=== PATIENT | male | born 1955 | race Caucasian/White ===

== ENCOUNTER 2022-02-09 12:10 | Inpatient (IN) ==
[2022-02-09 13:25] LABS: ABS Basophils 0.1 10^3/ul (0-0.2); ABS Eosinophils 0.1 10^3/ul (0-0.6); ABS Lymphocytes 0.6 10^3/ul (1.0-4.8); ABS Monocytes 0.7 10^3/ul (0-0.8); ABS Neutrophils 4.2 10^3/ul (1.5-7.7); Eosinophil % 1.5 %; Hematocrit 38 % (42-52); Lymphocyte % 11.4 %; Mean Corpuscular HGB Conc 32 g/dL (31-36); Mean Corpuscular Hemoglobin 29 pg (27-31); Mean Corpuscular Volume 90 fL (80-94); Mean Platelet Volume 10.1 fL (7.4-10.4); Nucleated Red Blood Cells % 0.1; Platelet Count 252 10^3/uL (150-450); Red Blood Count 4.17 10^6 /uL (4.18-5.48); Red Cell Distribution Width 16 % (10-15); White Blood Count 5.7 10^3/uL (3.5-10.8)
[2022-02-09 13:38] LABS: INR 1.17 (0.89-1.11)
[2022-02-09 13:47] LABS: High Sens Troponin Baseline 14 pg/mL (<20)
[2022-02-09 14:29] LABS: ALT 9 U/L (7-52); Albumin 3.6 g/dL (3.2-5.2); Albumin/Globulin Ratio 1.1 (1-3); Alkaline Phosphatase 98 U/L (35-149); Blood Urea Nitrogen 41 mg/dL (6-24); CO2 Carbon Dioxide 21 mmol/L (22-32); Calcium 8.5 mg/dL (8.6-10.3); Chloride 110 mmol/L (101-111); Globulin 3.4 g/dL (2-4); Glucose 107 mg/dL (70-100); Sodium 139 mmol/L (135-145); eGFR CKD-EPI 34.6 (>60)
[2022-02-09 14:32] LABS: Anion Gap 8 mmol/L (2-11)
[2022-02-09] MEDS ORDERED: Iodixanol (CONTRAST) 320 MG/ML 100 ML SDV IV ONE (15:22)
[2022-02-09 16:29] LABS: High Sensitivity Troponin 1 Hr 17 pg/mL (<20)
[2022-02-09] MEDS ORDERED: Furosemide 40 mg/4 ml IV VIAL IV ONE (16:42)
[2022-02-09] MEDS ORDERED: Enoxaparin 80 MG/0.8 ML SYR SUBCUT ONE (16:42)
[2022-02-09 17:08] LABS: Potassium Redraw 5.1 mmol/L (3.5-5.0)
[2022-02-09 17:11] LABS: C Reactive Protein 11.36 mg/L (<8.01)
[2022-02-09 17:25] LABS: TSH Ultra Thyroid Stim Horm 3.76 mcIU/mL (0.34-5.60)
[2022-02-09 18:06] LABS: Magnesium 1.7 mg/dL (1.9-2.7)
[2022-02-09] MEDS ORDERED: Metoprolol Tartrate 5 mg VIAL 5 ml VIAL (1 mg/ml) IV PRN (18:13)
[2022-02-09] MEDS ORDERED: Dextrose 50% Syringe 50 ml 25 GM/50 ML SYRINGE IV PUSH PRN (18:17)
[2022-02-09 19:41] LABS: PCO2 Arterial 33 mmHg (35-45); PO2 Arterial 91 mmHg (80-100)
[2022-02-09] MEDS: CMCS: SitaGLIPtin 100 mg TAB (NF) PO SCH ×2 (19:57→21:08)
[2022-02-10 08:22] LABS: ABS Lymphocytes 0.9 10^3/ul (1.0-4.8); ABS Neutrophils 3.4 10^3/ul (1.5-7.7); Eosinophil % 0.3 %; Hematocrit 39 % (42-52); Hemoglobin 12.3 g/dL (14.0-18.0); Lymphocyte % 16.6 %; Mean Corpuscular HGB Conc 32 g/dL (31-36); Mean Corpuscular Hemoglobin 29 pg (27-31); Mean Corpuscular Volume 91 fL (80-94); Mean Platelet Volume 10.1 fL (7.4-10.4); Nucleated Red Blood Cells % 0.1; Platelet Count 169 10^3/uL (150-450); Red Blood Count 4.22 10^6 /uL (4.18-5.48); Red Cell Distribution Width 17 % (10-15); White Blood Count 5.3 10^3/uL (3.5-10.8)
[2022-02-10 09:06] LABS: ALT 9 U/L (7-52); Albumin 3.4 g/dL (3.2-5.2); Albumin/Globulin Ratio 1.2 (1-3); Alkaline Phosphatase 89 U/L (35-149); Blood Urea Nitrogen 38 mg/dL (6-24); CO2 Carbon Dioxide 23 mmol/L (22-32); Calcium 8.6 mg/dL (8.6-10.3); Chloride 110 mmol/L (101-111); Globulin 2.9 g/dL (2-4); Glucose 86 mg/dL (70-100); Magnesium 1.9 mg/dL (1.9-2.7); Sodium 143 mmol/L (135-145); Total Protein 6.3 g/dL (6.4-8.9); eGFR CKD-EPI 35.7 (>60)
[2022-02-10 09:08] LABS: Anion Gap 10 mmol/L (2-11)
[2022-02-10] MEDS ORDERED: Perflutren Lipid Microsphere 3 ML VIAL ONE (12:09)
[2022-02-10] MEDS ORDERED: Albuterol HFA INHALER 8 gm MDI INH ONE (12:35)
[2022-02-10] MEDS ORDERED: Albuterol HFA INHALER 8 gm MDI INH PRN (12:36)
[2022-02-11 06:25] LABS: ABS Eosinophils 0.1 10^3/ul (0-0.6); ABS Monocytes 0.8 10^3/ul (0-0.8); ABS Neutrophils 3.4 10^3/ul (1.5-7.7); Eosinophil % 2.4 %; Hematocrit 38 % (42-52); Lymphocyte % 18.8 %; Mean Corpuscular HGB Conc 32 g/dL (31-36); Mean Corpuscular Hemoglobin 29 pg (27-31); Mean Corpuscular Volume 91 fL (80-94); Nucleated Red Blood Cells % 0.1; Platelet Count 151 10^3/uL (150-450); Red Blood Count 4.14 10^6 /uL (4.18-5.48); Red Cell Distribution Width 16 % (10-15); White Blood Count 5.4 10^3/uL (3.5-10.8)
[2022-02-11 06:39] LABS: Calcium 8.5 mg/dL (8.6-10.3); Magnesium 1.8 mg/dL (1.9-2.7); eGFR CKD-EPI 29.2 (>60)
[2022-02-11 06:41] LABS: Potassium 5.4 mmol/L (3.5-5.0)
[2022-02-11] MEDS ORDERED: Magnesium Sulfate 2 gm BAG 2 GM/50 ML BAG IVPB ONE (08:06)
[2022-02-11] MEDS ORDERED: Furosemide 40 mg/4 ml IV VIAL IV SCH (09:00)
[2022-02-11] MEDS ORDERED: SODIUM ZIRCONIUM CYCLOSILICATE 5 GM PACKET PO ONE (09:26)
[2022-02-11 16:40] LABS: Calcium 8.1 mg/dL (8.6-10.3); Potassium 4.9 mmol/L (3.5-5.0); eGFR CKD-EPI 25.3 (>60)
[2022-02-11 18:59] LABS: Urine Bacteria 1+ (Absent); Urine Red Blood Cell 1+(3-5/hpf) (Absent); Urine Squamous Epithelial Cell Present (Absent); Urine White Blood Cell 2+(11-20/hpf) (Absent); Urine Yeast Present (Absent)
[2022-02-11 19:04] LABS: Urine Appearance Cloudy; Urine Bilirubin 1+ (Small) (Negative); Urine Blood Trace (Lysed) (Negative); Urine Color Yellow; Urine Glucose Negative (Negative); Urine Ketones Negative (Negative); Urine Nitrite Negative (Negative); Urine Specific Gravity 1.025 (1.005-1.030); Urine Urobilinogen 0.2 (Negative) (Negative)
[2022-02-11 19:05] LABS: Urine Protein 3+ (>=300 mg/dL) (Negative)
[2022-02-11] MEDS: Magnesium Hydroxide LIQ 30 ML UDC PO SCH (20:03)
[2022-02-12 06:30] LABS: Calcium 8.2 mg/dL (8.6-10.3); eGFR CKD-EPI 22.5 (>60)
[2022-02-12 06:33] LABS: Potassium 5.1 mmol/L (3.5-5.0)
[2022-02-12] MEDS: Magnesium Hydroxide LIQ 30 ML UDC PO SCH ×2 (08:59→20:28)
[2022-02-12] MEDS ORDERED: Furosemide 40 mg/4 ml IV VIAL IV ONE (09:02)
[2022-02-12 16:43] LABS: Calcium 7.8 mg/dL (8.6-10.3); Potassium 4.8 mmol/L (3.5-5.0); eGFR CKD-EPI 20.7 (>60)
[2022-02-12] MEDS ORDERED: Albumin Human 25% 12.5 GM/50 ML BTL IV ONE (17:08)
[2022-02-12] MEDS ORDERED: Furosemide 40 mg/4 ml IV VIAL IV SLOW PU ONE (17:18)
[2022-02-12 23:13] LABS: Urine Creatinine 188.39 mg/dL; Urine Creatinine Concentration 188.39 mg/dL
[2022-02-13 01:28] LABS: UR Microalbumin (mg/L) 3490.9 mg/L
[2022-02-13 07:03] LABS: Calcium 7.8 mg/dL (8.6-10.3); Potassium 4.8 mmol/L (3.5-5.0); eGFR CKD-EPI 19.2 (>60)
[2022-02-13] MEDS: Magnesium Hydroxide LIQ 30 ML UDC PO SCH ×2 (08:29→22:00)
[2022-02-13] MEDS ORDERED: Furosemide 40 mg/4 ml IV VIAL IV ONE (13:05)
[2022-02-13] MEDS ORDERED: Bumetanide IV 0.25 MG/ML 4 ml VIAL (1 mg) SLOW PUSH ONE (14:00)
[2022-02-13] MEDS: Ampicillin ADVAN 1 GM in NS 0.9% 50 ML 50 ML IVPB SCH ×2 (14:58→21:58)
[2022-02-14] MEDS: Ampicillin ADVAN 1 GM in NS 0.9% 50 ML 50 ML IVPB SCH ×3 (06:05→21:06)
[2022-02-14 06:21] LABS: Hematocrit 37 % (42-52); Hemoglobin 11.7 g/dL (14.0-18.0); Mean Corpuscular HGB Conc 32 g/dL (31-36); Mean Corpuscular Hemoglobin 29 pg (27-31); Mean Corpuscular Volume 90 fL (80-94); Mean Platelet Volume 10.3 fL (7.4-10.4); Platelet Count 140 10^3/uL (150-450); Red Blood Count 4.08 10^6 /uL (4.18-5.48); Red Cell Distribution Width 16 % (10-15); White Blood Count 7.3 10^3/uL (3.5-10.8)
[2022-02-14 06:47] LABS: Calcium 7.9 mg/dL (8.6-10.3); Potassium 4.6 mmol/L (3.5-5.0); eGFR CKD-EPI 19.1 (>60)
[2022-02-14] MEDS ORDERED: Bumetanide IV 0.25 MG/ML 10 ml VIAL (2.5 mg) SLOW PUSH ONE ×2 (07:32→09:00)
[2022-02-14] MEDS: Magnesium Hydroxide LIQ 30 ML UDC PO SCH ×3 (09:05→21:05)
[2022-02-14 11:52] LABS: Hepatitis B Surface Antigen Nonreactive (Nonreactive)
[2022-02-14 12:10] LABS: Hepatitis B Surface Ab Not Immune (Immune)
[2022-02-14 13:02] LABS: Urine Appearance Slightly Cloudy; Urine Color Yellow
[2022-02-14 13:03] LABS: Urine Bilirubin Negative (Negative); Urine Blood 3+ (Large) (Negative); Urine Glucose Negative (Negative); Urine Ketones Negative (Negative); Urine Nitrite Negative (Negative); Urine Protein 3+ (>=300 mg/dL) (Negative); Urine Specific Gravity 1.025 (1.005-1.030); Urine Urobilinogen 0.2 (Negative) (Negative); Urine pH 5.5 (5.0-9.0)
[2022-02-14 13:14] LABS: Urine Amorphous Crystals Present (Absent); Urine Bacteria 1+ (Absent); Urine Red Blood Cell 3+(>10/hpf) (Absent); Urine Squamous Epithelial Cell Present (Absent); Urine White Blood Cell 1+(6-10/hpf) (Absent)
[2022-02-14 16:46] LABS: Calcium 7.7 mg/dL (8.6-10.3); Potassium 4.7 mmol/L (3.5-5.0); eGFR CKD-EPI 19.2 (>60)
[2022-02-14] MEDS: Bumetanide IV 0.25 MG/ML 4 ml VIAL (1 mg) SLOW PUSH SCH (17:54)
[2022-02-15 00:21] LABS: ABS Eosinophils 0.5 10^3/ul (0-0.6); ABS Monocytes 0.8 10^3/ul (0-0.8); ABS Neutrophils 6.2 10^3/ul (1.5-7.7); Eosinophil % 5.3 %; Hematocrit 36 % (42-52); Hemoglobin 11.4 g/dL (14.0-18.0); Lymphocyte % 11.9 %; Mean Corpuscular HGB Conc 32 g/dL (31-36); Mean Corpuscular Hemoglobin 29 pg (27-31); Mean Corpuscular Volume 90 fL (80-94); Platelet Count 131 10^3/uL (150-450); Red Blood Count 3.95 10^6 /uL (4.18-5.48); Red Cell Distribution Width 16 % (10-15); White Blood Count 8.5 10^3/uL (3.5-10.8)
[2022-02-15] MEDS: Ampicillin ADVAN 1 GM in NS 0.9% 50 ML 50 ML IVPB SCH ×2 (05:27→18:02)
[2022-02-15] MEDS: Magnesium Hydroxide LIQ 30 ML UDC PO SCH ×2 (08:21→21:55)
[2022-02-15] MEDS: Bumetanide IV 0.25 MG/ML 4 ml VIAL (1 mg) SLOW PUSH SCH ×2 (08:21→21:39)
[2022-02-15 10:12] LABS: Calcium 7.9 mg/dL (8.6-10.3); Potassium 4.6 mmol/L (3.5-5.0); eGFR CKD-EPI 18.3 (>60)
[2022-02-16] MEDS: Ampicillin ADVAN 1 GM in NS 0.9% 50 ML 50 ML IVPB SCH ×4 (00:48→21:55)
[2022-02-16 08:46] LABS: ABS Basophils 0.1 10^3/ul (0-0.2); ABS Eosinophils 0.7 10^3/ul (0-0.6); ABS Lymphocytes 1.4 10^3/ul (1.0-4.8); ABS Neutrophils 7.1 10^3/ul (1.5-7.7); Eosinophil % 6.6 %; Hematocrit 37 % (42-52); Hemoglobin 12.4 g/dL (14.0-18.0); Mean Corpuscular HGB Conc 33 g/dL (31-36); Mean Corpuscular Hemoglobin 29 pg (27-31); Mean Corpuscular Volume 88 fL (80-94); Mean Platelet Volume 10.3 fL (7.4-10.4); Platelet Count 176 10^3/uL (150-450); Red Blood Count 4.22 10^6 /uL (4.18-5.48); Red Cell Distribution Width 16 % (10-15); White Blood Count 10.2 10^3/uL (3.5-10.8)
[2022-02-16] MEDS: Bumetanide IV 0.25 MG/ML 4 ml VIAL (1 mg) SLOW PUSH SCH ×2 (08:54→21:42)
[2022-02-16] MEDS: Magnesium Hydroxide LIQ 30 ML UDC PO SCH ×2 (08:56→21:43)
[2022-02-16 09:07] LABS: Albumin 3.5 g/dL (3.2-5.2); Albumin/Globulin Ratio 1.1 (1-3); Calcium 8.1 mg/dL (8.6-10.3); Globulin 3.2 g/dL (2-4); Potassium 4.5 mmol/L (3.5-5.0); Total Bilirubin 1.6 mg/dL (0.2-1.0); Total Protein 6.7 g/dL (6.4-8.9)
[2022-02-17] MEDS: Ampicillin ADVAN 1 GM in NS 0.9% 50 ML 50 ML IVPB SCH ×2 (06:10→13:03)
[2022-02-17 07:12] LABS: ABS Eosinophils 0.7 10^3/ul (0-0.6); ABS Neutrophils 5.4 10^3/ul (1.5-7.7); Eosinophil % 8.4 %; Hematocrit 36 % (42-52); Hemoglobin 12.1 g/dL (14.0-18.0); Lymphocyte % 12.1 %; Mean Corpuscular HGB Conc 33 g/dL (31-36); Mean Corpuscular Hemoglobin 30 pg (27-31); Mean Corpuscular Volume 88 fL (80-94); Mean Platelet Volume 10.7 fL (7.4-10.4); Platelet Count 170 10^3/uL (150-450); Red Blood Count 4.09 10^6 /uL (4.18-5.48); Red Cell Distribution Width 16 % (10-15)
[2022-02-17 07:27] LABS: Calcium 7.8 mg/dL (8.6-10.3); Potassium 4.3 mmol/L (3.5-5.0); eGFR CKD-EPI 22.3 (>60)
[2022-02-17] MEDS: Bumetanide IV 0.25 MG/ML 4 ml VIAL (1 mg) SLOW PUSH SCH ×2 (08:42→22:15)
[2022-02-17] MEDS: Magnesium Hydroxide LIQ 30 ML UDC PO SCH ×2 (10:46→22:05)
[2022-02-18] MEDS: Bumetanide IV 0.25 MG/ML 4 ml VIAL (1 mg) SLOW PUSH SCH ×2 (09:50→21:10)
[2022-02-18] MEDS: Magnesium Hydroxide LIQ 30 ML UDC PO SCH ×2 (10:11→21:08)
[2022-02-18 10:23] LABS: ABS Eosinophils 0.6 10^3/ul (0-0.6); ABS Monocytes 0.9 10^3/ul (0-0.8); Eosinophil % 8.5 %; Hematocrit 37 % (42-52); Hemoglobin 11.9 g/dL (14.0-18.0); Mean Corpuscular HGB Conc 33 g/dL (31-36); Mean Corpuscular Hemoglobin 29 pg (27-31); Mean Corpuscular Volume 88 fL (80-94); Mean Platelet Volume 9.7 fL (7.4-10.4); Platelet Count 199 10^3/uL (150-450); Red Blood Count 4.16 10^6 /uL (4.18-5.48); Red Cell Distribution Width 16 % (10-15); White Blood Count 6.5 10^3/uL (3.5-10.8)
[2022-02-18] MEDS: Nystatin TOP POWDER 15 GM BTL TOPICAL SCH ×3 (11:55→21:19)
[2022-02-18 12:02] LABS: Potassium 4.4 mmol/L (3.5-5.0); eGFR CKD-EPI 22.6 (>60)
[2022-02-18] MEDS ORDERED: Bumetanide IV 0.25 MG/ML 4 ml VIAL (1 mg) SLOW PUSH ONE (16:10)
[2022-02-18 18:22] LABS: Calcium 7.7 mg/dL (8.6-10.3); Potassium 4.2 mmol/L (3.5-5.0); eGFR CKD-EPI 24.3 (>60)
[2022-02-19 11:11] LABS: Anion Gap 9 mmol/L (2-11); Blood Urea Nitrogen 57 mg/dL (6-24); CO2 Carbon Dioxide 23 mmol/L (22-32); Calcium 7.6 mg/dL (8.6-10.3); Chloride 106 mmol/L (101-111); Glucose 150 mg/dL (70-100); Sodium 138 mmol/L (135-145); eGFR CKD-EPI 23.7 (>60)
[2022-02-19] MEDS: Bumetanide IV 0.25 MG/ML 4 ml VIAL (1 mg) SLOW PUSH SCH (11:34)
[2022-02-19] MEDS: Nystatin TOP POWDER 15 GM BTL TOPICAL SCH ×3 (11:38→21:31)
[2022-02-19] MEDS: Magnesium Hydroxide LIQ 30 ML UDC PO SCH ×2 (11:38→21:07)
[2022-02-19 11:59] LABS: Vitamin D Total 25(OH) < 7.0 ng/mL (20-50)
[2022-02-19] MEDS ORDERED: Bumetanide IV 10 MG in Premix IV 0 ML IV SCH (12:00)
[2022-02-19] MEDS ORDERED: Bumetanide IV 0.25 MG/ML 4 ml VIAL (1 mg) SLOW PUSH ONE ×3 (13:19→22:00)
[2022-02-20 06:27] LABS: ABS Basophils 0.1 10^3/ul (0-0.2); ABS Eosinophils 0.4 10^3/ul (0-0.6); ABS Lymphocytes 1.1 10^3/ul (1.0-4.8); ABS Neutrophils 3.7 10^3/ul (1.5-7.7); Hematocrit 39 % (42-52); Hemoglobin 12.4 g/dL (14.0-18.0); Lymphocyte % 17.2 %; Mean Corpuscular HGB Conc 32 g/dL (31-36); Mean Corpuscular Hemoglobin 29 pg (27-31); Mean Corpuscular Volume 91 fL (80-94); Mean Platelet Volume 9.5 fL (7.4-10.4); Nucleated Red Blood Cells % 0.1; Platelet Count 179 10^3/uL (150-450); Red Blood Count 4.32 10^6 /uL (4.18-5.48); Red Cell Distribution Width 16 % (10-15); White Blood Count 6.3 10^3/uL (3.5-10.8)
[2022-02-20 06:44] LABS: Calcium 8.1 mg/dL (8.6-10.3); Magnesium 1.9 mg/dL (1.9-2.7); Potassium 4.2 mmol/L (3.5-5.0)
[2022-02-20 06:49] LABS: eGFR CKD-EPI 24.1 (>60)
[2022-02-20] MEDS ORDERED: Bumetanide IV 0.25 MG/ML 4 ml VIAL (1 mg) SLOW PUSH ONE (07:00)
[2022-02-20] MEDS: Nystatin TOP POWDER 15 GM BTL TOPICAL SCH (09:50)
[2022-02-20] MEDS: Magnesium Hydroxide LIQ 30 ML UDC PO SCH (09:50)
[2022-02-20 13:47] VITALS: BP 132/74
== END 2022-02-20 14:41 | disposition home health service (06) | DRG 134 ==
LOC: ED 12:10 → SUATTDRO 16:17 → EDHOLD 16:17 → MEDTELE 02-10 12:04
PROVIDERS: ADMIT Internal Medicine; ATTEND Internal Medicine

== ENCOUNTER 2023-07-10 10:13 | Inpatient (IN) ==
[2023-07-10 13:56] LABS: Hematocrit 36.4 % (38-53); Hemoglobin 11.9 g/dL (13.2-16.3); Mean Corpuscular Hemoglobin 30.4 pg (27-33); Mean Corpuscular Hgb Conc 32.6 g/dL (31-36); Mean Corpuscular Volume 93.3 fL (80-97); Mean Platelet Volume 10.6 fL (7.5-11.2); Platelet Count 172 10^3/uL (150-450); Red Cell Distribution Width 15.2 % (12-17); White Blood Count 19.8 10^3/uL (3.6-10.2)
[2023-07-10] MEDS: Lactated Ringers 1000 ml BAG 1,000 ML IV ONE (14:11)
[2023-07-10] MEDS: cefTRIAXone 1 gm/50 mL D5W 1 GM/50 ML BAG IV ONE (14:11)
[2023-07-10 14:27] LABS: ABS Basophils 0.2 10^3/uL (0.0-0.1); ABS Lymphocytes 1.6 10^3/uL (1.0-4.8); ABS Monocytes 1.9 10^3/uL (0.0-1.1); ABS Neutrophils 16.2 10^3/uL (1.5-7.6); Eosinophil % 0.3 %; Lymphocyte % 7.8 %
[2023-07-10 14:42] LABS: ALT 14 U/L (7-52); Albumin 3.5 g/dL (3.2-5.2); Alkaline Phosphatase 83 U/L (35-149); Anion Gap 10 mmol/L (2-16); Blood Urea Nitrogen 82 mg/dL (6-24); CO2 Carbon Dioxide 21 mmol/L (22-32); Calcium 8.6 mg/dL (8.6-10.3); Chloride 103 mmol/L (101-111); Creatinine, Serum 4.36 mg/dL (0.67-1.17); Globulin 3.5 g/dL (2-4); Glucose 98 mg/dL (70-100); Sodium 134 mmol/L (135-145); Total Bilirubin 2.1 mg/dL (0.2-1.0); eGFR CKD-EPI 13.8 (>60)
[2023-07-10 14:50] LABS: TSH Ultra Thyroid Stim Horm 13.74 mcIU/mL (0.34-5.60)
[2023-07-10 15:32] LABS: High Sens Troponin Baseline 35 pg/mL (<20)
[2023-07-10 15:44] LABS: High Sensitivity Troponin 1 Hr 25 pg/mL (<20)
[2023-07-10 17:03] LABS: Urine Appearance Turbid; Urine Bilirubin Negative (Negative); Urine Blood Negative (Negative); Urine Color Yellow; Urine Glucose Negative (Negative); Urine Ketones Negative (Negative); Urine Nitrite Negative (Negative); Urine Protein 1+ (>=30 mg/dL) (Negative); Urine Specific Gravity 1.016 (1.002-1.030); Urine Urobilinogen Negative (Negative)
[2023-07-10 17:08] LABS: Urine Bacteria 1+ /HPF (Absent); Urine Red Blood Cell 2+(6-10/hpf) /HPF (0-Trace); Urine Squamous Epithelial Cell Present /HPF (Absent); Urine White Blood Cell 1+(6-10/hpf) /HPF (0-Trace)
[2023-07-10 17:42] LABS: Magnesium 1.9 mg/dL (1.9-2.7); Potassium 4.5 mmol/L (3.5-5.0)
[2023-07-10] MEDS: Aspirin EC 81 mg TAB.EC (enteric coated) PO SCH (20:01)
[2023-07-10] MEDS ORDERED: Dextrose 50% Syringe 50 ml 25 GM/50 ML SYRINGE IV PUSH PRN (20:28)
[2023-07-10] MEDS ORDERED: Albuterol HFA INHALER 8 gm MDI INH PRN (23:28)
[2023-07-11] LABS: Free T4 0.89 ng/dL (0.61-1.12)
[2023-07-11 00:48] LABS: Folate 19.63 ng/mL (5.90-24.80)
[2023-07-11 00:49] LABS: Vitamin B12 229 pg/mL (180-914)
[2023-07-11] MEDS: Ampicillin IV 1 GM in NS 0.9% 50 ML 50 ML IVPB SCH (01:59)
[2023-07-11] MEDS: Lactated Ringers 1000 ml BAG 1,000 ML IV SCH ×2 (02:41→15:55)
[2023-07-11] MEDS: Fluticasone NASAL SPRAY 50MCG 16 gm SPRAY BTL BOTH NARES SCH (09:16)
[2023-07-11] MEDS: cefTRIAXone 1 gm/50 mL D5W 1 GM/50 ML BAG IV SCH (14:18)
[2023-07-11 14:25] LABS: ABS Basophils 0.1 10^3/uL (0.0-0.1); ABS Lymphocytes 1.3 10^3/uL (1.0-4.8); ABS Monocytes 1.5 10^3/uL (0.0-1.1); Eosinophil % 0.2 %; Hematocrit 30.2 % (38-53); Lymphocyte % 6.7 %; Mean Corpuscular Hemoglobin 30.9 pg (27-33); Mean Corpuscular Hgb Conc 33.1 g/dL (31-36); Mean Corpuscular Volume 93.3 fL (80-97); Mean Platelet Volume 10.6 fL (7.5-11.2); Platelet Count 157 10^3/uL (150-450); Red Blood Count 3.23 10^6/uL (4.06-5.63); White Blood Count 18.9 10^3/uL (3.6-10.2)
[2023-07-11] MEDS ORDERED: Zosyn per Pharmacy NOTE FOLLOW UP SCH (15:00)
[2023-07-11 15:36] LABS: Creatinine, Serum 4.74 mg/dL (0.67-1.17); Magnesium 1.9 mg/dL (1.9-2.7); Potassium 4.3 mmol/L (3.5-5.0); eGFR CKD-EPI 12.5 (>60)
[2023-07-11 15:46] LABS: PSA Screen Ultra Sensitive 7.042 ng/mL (0-4.000)
[2023-07-11] MEDS: NS 0.9% 1000 ml BAG 1,000 ML IV SCH (15:56)
[2023-07-11] MEDS: ZOSYN 3.375 GM x ONE DOSE over 30 miuntes IV (17:19)
[2023-07-11] MEDS: NS 0.9% 1000 ml BAG 1,000 ML IV ONE (17:38)
[2023-07-11] MEDS: ZOSYN 3.375 GM Q12H per EXTENDED INFUSION IV SCH (23:21)
[2023-07-12] MEDS: Psyllium PAK PO SCH (09:07)
[2023-07-12 15:20] LABS: ABS Basophils 0.1 10^3/uL (0.0-0.1); ABS Eosinophils 0.2 10^3/uL (0.0-0.5); ABS Monocytes 1.4 10^3/uL (0.0-1.1); ABS Neutrophils 15.2 10^3/uL (1.5-7.6); Eosinophil % 0.9 %; Hematocrit 31.7 % (38-53); Hemoglobin 10.5 g/dL (13.2-16.3); Lymphocyte % 5.4 %; Mean Corpuscular Volume 93.8 fL (80-97); Mean Platelet Volume 10.6 fL (7.5-11.2); Platelet Count 158 10^3/uL (150-450); Red Blood Count 3.38 10^6/uL (4.06-5.63); White Blood Count 17.8 10^3/uL (3.6-10.2)
[2023-07-12 16:04] LABS: Albumin 2.8 g/dL (3.2-5.2); Calcium 7.7 mg/dL (8.6-10.3); Creatinine, Serum 4.9 mg/dL (0.67-1.17); Globulin 2.8 g/dL (2-4); Magnesium 1.9 mg/dL (1.9-2.7); Potassium 4.3 mmol/L (3.5-5.0); Total Bilirubin 0.9 mg/dL (0.2-1.0); Total Protein 5.6 g/dL (6.4-8.9)
[2023-07-12] MEDS: Magnesium Sulfate 2 gm BAG 2 GM/50 ML BAG IVPB ONE (18:05)
[2023-07-13 05:48] LABS: ABS Basophils 0.1 10^3/uL (0.0-0.1); ABS Eosinophils 0.2 10^3/uL (0.0-0.5); ABS Lymphocytes 0.9 10^3/uL (1.0-4.8); ABS Monocytes 1.4 10^3/uL (0.0-1.1); ABS Neutrophils 12.9 10^3/uL (1.5-7.6); Eosinophil % 1.1 %; Hematocrit 29.7 % (38-53); Hemoglobin 9.8 g/dL (13.2-16.3); Mean Corpuscular Hemoglobin 30.6 pg (27-33); Mean Corpuscular Hgb Conc 32.9 g/dL (31-36); Mean Corpuscular Volume 92.8 fL (80-97); Mean Platelet Volume 10.4 fL (7.5-11.2); Platelet Count 157 10^3/uL (150-450); Red Cell Distribution Width 14.7 % (12-17); White Blood Count 15.4 10^3/uL (3.6-10.2)
[2023-07-13 06:06] LABS: Calcium 7.4 mg/dL (8.6-10.3); Creatinine, Serum 4.87 mg/dL (0.67-1.17); Magnesium 2.2 mg/dL (1.9-2.7); Potassium 4.2 mmol/L (3.5-5.0); eGFR CKD-EPI 12.1 (>60)
[2023-07-13 06:21] LABS: TSH Ultra Thyroid Stim Horm 10.86 mcIU/mL (0.34-5.60)
[2023-07-13 09:43] LABS: Vitamin D Total 25(OH) 21.7 ng/mL (20-50)
[2023-07-13] MEDS: Calcium Carb (TUMS) 500 mg CHEW TAB PO SCH (10:40)
[2023-07-13 11:06] LABS: Calcium (PTH Intact) 7.4 mg/dL (8.6-10.3)
[2023-07-14 07:03] LABS: ABS Eosinophils 0.2 10^3/uL (0.0-0.5); ABS Lymphocytes 0.9 10^3/uL (1.0-4.8); ABS Monocytes 1.1 10^3/uL (0.0-1.1); ABS Neutrophils 12.4 10^3/uL (1.5-7.6); Eosinophil % 1.5 %; Hematocrit 28.9 % (38-53); Hemoglobin 9.6 g/dL (13.2-16.3); Lymphocyte % 6.4 %; Mean Corpuscular Hemoglobin 30.7 pg (27-33); Mean Corpuscular Hgb Conc 33.1 g/dL (31-36); Mean Corpuscular Volume 92.9 fL (80-97); Mean Platelet Volume 10.8 fL (7.5-11.2); Platelet Count 187 10^3/uL (150-450); Red Blood Count 3.11 10^6/uL (4.06-5.63); Red Cell Distribution Width 14.5 % (12-17); White Blood Count 14.7 10^3/uL (3.6-10.2)
[2023-07-14 09:56] LABS: Calcium 7.6 mg/dL (8.6-10.3); Creatinine, Serum 5.23 mg/dL (0.67-1.17); Magnesium 2.1 mg/dL (1.9-2.7); Potassium 4.5 mmol/L (3.5-5.0); eGFR CKD-EPI 11.1 (>60)
[2023-07-14] MEDS: Psyllium PAK PO SCH (20:07)
[2023-07-15 07:04] LABS: ABS Basophils 0.1 10^3/uL (0.0-0.1); ABS Eosinophils 0.3 10^3/uL (0.0-0.5); ABS Lymphocytes 0.9 10^3/uL (1.0-4.8); ABS Monocytes 1.1 10^3/uL (0.0-1.1); ABS Neutrophils 10.8 10^3/uL (1.5-7.6); Eosinophil % 2.3 %; Hematocrit 29.2 % (38-53); Hemoglobin 9.7 g/dL (13.2-16.3); Lymphocyte % 6.9 %; Mean Corpuscular Hemoglobin 30.8 pg (27-33); Mean Corpuscular Hgb Conc 33.1 g/dL (31-36); Mean Corpuscular Volume 92.9 fL (80-97); Mean Platelet Volume 10.1 fL (7.5-11.2); Platelet Count 196 10^3/uL (150-450); Red Blood Count 3.15 10^6/uL (4.06-5.63); Red Cell Distribution Width 14.9 % (12-17); White Blood Count 13.1 10^3/uL (3.6-10.2)
[2023-07-15 07:44] LABS: Calcium 7.7 mg/dL (8.6-10.3); Creatinine, Serum 5.53 mg/dL (0.67-1.17); Magnesium 2.3 mg/dL (1.9-2.7); Potassium 4.4 mmol/L (3.5-5.0); eGFR CKD-EPI 10.4 (>60)
[2023-07-15] MEDS: Bumetanide IV 0.25 MG/ML 4 ml VIAL (1 mg) IV SLOW PU SCH (21:43)
[2023-07-15 22:18] LABS: Ferritin 425.7 ng/mL (24-336)
[2023-07-16 06:57] LABS: Hematocrit 30.1 % (38-53); Hemoglobin 9.9 g/dL (13.2-16.3); Mean Corpuscular Hemoglobin 30.6 pg (27-33); Mean Corpuscular Hgb Conc 32.9 g/dL (31-36); Mean Platelet Volume 9.8 fL (7.5-11.2); Platelet Count 227 10^3/uL (150-450); Red Blood Count 3.23 10^6/uL (4.06-5.63); Red Cell Distribution Width 14.7 % (12-17); White Blood Count 12.1 10^3/uL (3.6-10.2)
[2023-07-16 07:21] LABS: Calcium 7.5 mg/dL (8.6-10.3); Creatinine, Serum 5.89 mg/dL (0.67-1.17); Potassium 4.3 mmol/L (3.5-5.0); eGFR CKD-EPI 9.6 (>60)
[2023-07-16 08:51] LABS: ABS Basophils 0.1 10^3/uL (0.0-0.1); ABS Eosinophils 0.3 10^3/uL (0.0-0.5); ABS Monocytes 1.1 10^3/uL (0.0-1.1); ABS Neutrophils 9.6 10^3/uL (1.5-7.6); ABS Nucleated RBC 0.01 10^3/ul; Acanthocytes 2+; Eosinophil % 2.2 %; Hypochromasia 1+; Lymphocyte % 8.4 %; Nucleated Red Blood Cells % 0.1 %/100WBC (0.0-0.8)
[2023-07-16] MEDS: Heparin 5000 UNITS/ML 1 mL VIAL SUBCUT SCH (20:13)
[2023-07-17 08:07] LABS: Hemoglobin 10.6 g/dL (13.2-16.3); Mean Corpuscular Hemoglobin 30.6 pg (27-33); Mean Corpuscular Hgb Conc 33.2 g/dL (31-36); Mean Corpuscular Volume 92.2 fL (80-97); Mean Platelet Volume 9.5 fL (7.5-11.2); Platelet Count 242 10^3/uL (150-450); Red Blood Count 3.47 10^6/uL (4.06-5.63); Red Cell Distribution Width 14.8 % (12-17); White Blood Count 11.5 10^3/uL (3.6-10.2)
[2023-07-17 08:28] LABS: Calcium 7.8 mg/dL (8.6-10.3); Creatinine, Serum 5.42 mg/dL (0.67-1.17); Potassium 4.6 mmol/L (3.5-5.0); eGFR CKD-EPI 10.7 (>60)
[2023-07-17 08:31] LABS: INR 1.33 (0.83-1.13)
[2023-07-17 09:30] LABS: ABS Lymphocytes 0.9 10^3/uL (1.0-4.8); ABS Monocytes 0.5 10^3/uL (0.0-1.1); ABS Neutrophils 10.1 10^3/uL (1.5-7.6); Acanthocytes 2+; Eosinophil % 0.1 %; Lymphocyte % 7.8 %; Polychromasia 1+
[2023-07-18 06:19] LABS: Hematocrit 32.9 % (38-53); Hemoglobin 10.7 g/dL (13.2-16.3); Mean Corpuscular Hgb Conc 32.6 g/dL (31-36); Mean Corpuscular Volume 92.1 fL (80-97); Mean Platelet Volume 9.7 fL (7.5-11.2); Platelet Count 273 10^3/uL (150-450); Red Blood Count 3.57 10^6/uL (4.06-5.63); Red Cell Distribution Width 14.3 % (12-17); White Blood Count 13.2 10^3/uL (3.6-10.2)
[2023-07-18 07:16] LABS: Creatinine, Serum 4.98 mg/dL (0.67-1.17); Potassium 4.5 mmol/L (3.5-5.0); eGFR CKD-EPI 11.8 (>60)
[2023-07-18 07:31] LABS: ABS Basophils 0.1 10^3/uL (0.0-0.1); ABS Eosinophils 0.1 10^3/uL (0.0-0.5); ABS Lymphocytes 1.2 10^3/uL (1.0-4.8); ABS Monocytes 0.9 10^3/uL (0.0-1.1); ABS Nucleated RBC 0.01 10^3/ul; Acanthocytes 1+; Eosinophil % 0.9 %; Lymphocyte % 8.8 %; Nucleated Red Blood Cells % 0.1 %/100WBC (0.0-0.8)
[2023-07-19 06:25] LABS: Hematocrit 35.6 % (38-53); Hemoglobin 11.7 g/dL (13.2-16.3); Mean Corpuscular Volume 90.9 fL (80-97); Mean Platelet Volume 9.1 fL (7.5-11.2); Platelet Count 312 10^3/uL (150-450); Red Blood Count 3.91 10^6/uL (4.06-5.63); Red Cell Distribution Width 14.7 % (12-17); White Blood Count 13.1 10^3/uL (3.6-10.2)
[2023-07-19 07:02] LABS: Calcium 8.1 mg/dL (8.6-10.3); Creatinine, Serum 4.12 mg/dL (0.67-1.17); Magnesium 2.1 mg/dL (1.9-2.7); Potassium 4.5 mmol/L (3.5-5.0); eGFR CKD-EPI 14.8 (>60)
[2023-07-19] MEDS ORDERED: Dextrose 50% Syringe 50 ml 25 GM/50 ML SYRINGE IV PUSH PRN (07:29)
[2023-07-19 07:34] LABS: ABS Lymphocytes 1.2 10^3/uL (1.0-4.8); ABS Monocytes 0.7 10^3/uL (0.0-1.1); ABS Neutrophils 11.1 10^3/uL (1.5-7.6); ABS Nucleated RBC 0.01 10^3/ul; Eosinophil % 0.1 %; Lymphocyte % 9.1 %; Nucleated Red Blood Cells % 0.1 %/100WBC (0.0-0.8)
[2023-07-20 06:18] LABS: Hematocrit 33.2 % (38-53); Hemoglobin 11.1 g/dL (13.2-16.3); Mean Corpuscular Hemoglobin 30.3 pg (27-33); Mean Corpuscular Hgb Conc 33.5 g/dL (31-36); Mean Corpuscular Volume 90.5 fL (80-97); Mean Platelet Volume 9.2 fL (7.5-11.2); Platelet Count 270 10^3/uL (150-450); Red Blood Count 3.67 10^6/uL (4.06-5.63); Red Cell Distribution Width 14.6 % (12-17); White Blood Count 13.7 10^3/uL (3.6-10.2)
[2023-07-20 06:39] LABS: ABS Lymphocytes 1.5 10^3/uL (1.0-4.8); ABS Neutrophils 11.1 10^3/uL (1.5-7.6); ABS Nucleated RBC 0.02 10^3/ul; Eosinophil % 0.3 %; Nucleated Red Blood Cells % 0.1 %/100WBC (0.0-0.8); RBC Morphology Normal (Normal)
[2023-07-20 07:44] LABS: Creatinine, Serum 3.62 mg/dL (0.67-1.17); Potassium 4.4 mmol/L (3.5-5.0); eGFR CKD-EPI 17.3 (>60)
[2023-07-20 09:43] VITALS: BP 127/78
== END 2023-07-20 12:35 | disposition home or self-care (01) | DRG 720 ==
LOC: EDHOLD 10:13 → ED 10:13 → SUATTDRO 18:35 → MED 21:13 → SUATTDRO 07-13 10:00
PROVIDERS: ADMIT Internal Medicine; ATTEND Student in an Organized Health Care Education/Training Program

== ENCOUNTER 2023-08-01 11:44 | Inpatient (IN) ==
[2023-08-01 12:35] LABS: ABS Basophils 0.1 10^3/uL (0.0-0.1); ABS Eosinophils 0.1 10^3/uL (0.0-0.5); ABS Monocytes 1.3 10^3/uL (0.0-1.1); ABS Neutrophils 13.4 10^3/uL (1.5-7.6); Eosinophil % 0.6 %; Hematocrit 35.5 % (38-53); Hemoglobin 11.8 g/dL (13.2-16.3); Lymphocyte % 6.6 %; Mean Corpuscular Hemoglobin 30.6 pg (27-33); Mean Corpuscular Hgb Conc 33.3 g/dL (31-36); Mean Platelet Volume 12.1 fL (7.5-11.2); Platelet Count 172 10^3/uL (150-450); Red Blood Count 3.86 10^6/uL (4.06-5.63); Red Cell Distribution Width 15.7 % (12-17); White Blood Count 15.9 10^3/uL (3.6-10.2)
[2023-08-01 12:45] LABS: Activated Partial Thrombo Time 27.2 seconds (26.0-38.0); INR 1.28 (0.83-1.13)
[2023-08-01] MEDS: Piperacillin/Tazobac 3.375 BAG 3.375 GM/100 ML BAG IV ONE (13:20)
[2023-08-01 14:00] LABS: Albumin 3.1 g/dL (3.2-5.2); Albumin/Globulin Ratio 0.9 (1-3); C Reactive Protein 29.8 mg/L (<8.01); Calcium 8.2 mg/dL (8.6-10.3); Creatinine, Serum 2.68 mg/dL (0.67-1.17); Globulin 3.3 g/dL (2-4); Total Bilirubin 5.1 mg/dL (0.2-1.0); Total Protein 6.4 g/dL (6.4-8.9); eGFR CKD-EPI 24.8 (>60)
[2023-08-01] MEDS: Lactated Ringers 1000 ml BAG 1,000 ML IV SCH ×2 (14:23→23:11)
[2023-08-01 14:32] LABS: High Sensitivity Troponin 1 Hr 20 pg/mL (<20)
[2023-08-01 15:41] LABS: Potassium 4.5 mmol/L (3.5-5.0)
[2023-08-01] MEDS ORDERED: Lidocaine 1% w EPI 1:100,000 MDV 20 ML VIAL ONE (16:11)
[2023-08-01] MEDS ORDERED: Succinylcholine 200 mg VIAL 20 mg/ml 10 ml VIAL (200 mg) ONE (16:22)
[2023-08-01] MEDS ORDERED: fentaNYL 100 mcg/2 ml 50 MCG/ML VIAL ONE (16:22)
[2023-08-01] MEDS ORDERED: Lidocaine 2% PF 5 ML VIAL ONE (16:22)
[2023-08-01] MEDS ORDERED: Ondansetron 4 mg VIAL 2 MG/ML 2 ml VIAL ONE (16:22)
[2023-08-01] MEDS ORDERED: Propofol 10 MG/ML 20 ML BTL ONE (16:22)
[2023-08-01] MEDS ORDERED: Albuterol HFA INHALER 8 gm MDI INH PRN (20:17)
[2023-08-01] MEDS ORDERED: Dextrose 50% Syringe 50 ml 25 GM/50 ML SYRINGE IV PUSH PRN (20:33)
[2023-08-01] MEDS ORDERED: Zosyn per Pharmacy NOTE FOLLOW UP SCH (21:00)
[2023-08-01] MEDS: ZOSYN 3.375 GM x ONE DOSE over 30 miuntes IV (23:25)
[2023-08-02] MEDS: ZOSYN 3.375 GM Q8H per EXTENDED INFUSION IV SCH (03:01)
[2023-08-02 06:54] LABS: Albumin 2.8 g/dL (3.2-5.2); Albumin/Globulin Ratio 1.1 (1-3); Creatinine, Serum 2.77 mg/dL (0.67-1.17); Direct Bilirubin 2.1 mg/dL (0.03-0.18); Globulin 2.6 g/dL (2-4); Indirect Bilirubin 1.4 mg/dL (0.3-1.0); Potassium 4.8 mmol/L (3.5-5.0); Total Bilirubin 3.5 mg/dL (0.2-1.0); Total Protein 5.4 g/dL (6.4-8.9); eGFR CKD-EPI 23.8 (>60)
[2023-08-02 07:38] LABS: ABS Eosinophils 0.1 10^3/uL (0.0-0.5); ABS Lymphocytes 1.2 10^3/uL (1.0-4.8); ABS Monocytes 1.3 10^3/uL (0.0-1.1); ABS Neutrophils 10.7 10^3/uL (1.5-7.6); ABS Nucleated RBC 0.02 10^3/ul; Eosinophil % 0.8 %; Hematocrit 32.8 % (38-53); Hemoglobin 10.6 g/dL (13.2-16.3); Lymphocyte % 9.2 %; Mean Corpuscular Hemoglobin 30.8 pg (27-33); Mean Corpuscular Hgb Conc 32.4 g/dL (31-36); Mean Corpuscular Volume 95.1 fL (80-97); Mean Platelet Volume 11.7 fL (7.5-11.2); Nucleated Red Blood Cells % 0.1 %/100WBC (0.0-0.8); Platelet Count 130 10^3/uL (150-450); Red Blood Count 3.44 10^6/uL (4.06-5.63); Red Cell Distribution Width 15.7 % (12-17); White Blood Count 13.4 10^3/uL (3.6-10.2)
[2023-08-02] MEDS: Aspirin EC 81 mg TAB.EC (enteric coated) PO SCH (09:40)
[2023-08-02] MEDS: SitaGLIPtin 25mg TAB (NF) 25 MG TAB PO SCH (09:40)
[2023-08-02] MEDS: Heparin 5000 UNITS/ML 1 mL VIAL SUBCUT SCH (21:39)
[2023-08-04 06:27] LABS: ABS Basophils 0.1 10^3/uL (0.0-0.1); ABS Eosinophils 0.5 10^3/uL (0.0-0.5); ABS Lymphocytes 1.4 10^3/uL (1.0-4.8); ABS Monocytes 0.8 10^3/uL (0.0-1.1); ABS Neutrophils 5.6 10^3/uL (1.5-7.6); ABS Nucleated RBC 0.01 10^3/ul; Hematocrit 32.2 % (38-53); Hemoglobin 10.7 g/dL (13.2-16.3); Lymphocyte % 16.2 %; Mean Corpuscular Hemoglobin 30.6 pg (27-33); Mean Corpuscular Hgb Conc 33.2 g/dL (31-36); Mean Corpuscular Volume 92.2 fL (80-97); Nucleated Red Blood Cells % 0.1 %/100WBC (0.0-0.8); Platelet Count 156 10^3/uL (150-450); Red Blood Count 3.49 10^6/uL (4.06-5.63); Red Cell Distribution Width 15.4 % (12-17); White Blood Count 8.3 10^3/uL (3.6-10.2)
[2023-08-04 06:51] LABS: Albumin 2.8 g/dL (3.2-5.2); C Reactive Protein 31.91 mg/L (<8.01); Calcium 7.7 mg/dL (8.6-10.3); Creatinine, Serum 2.74 mg/dL (0.67-1.17); Globulin 2.9 g/dL (2-4); Potassium 4.4 mmol/L (3.5-5.0); Total Bilirubin 1.7 mg/dL (0.2-1.0); Total Protein 5.7 g/dL (6.4-8.9); eGFR CKD-EPI 24.2 (>60)
[2023-08-05 08:47] LABS: ABS Basophils 0.1 10^3/uL (0.0-0.1); ABS Eosinophils 0.4 10^3/uL (0.0-0.5); ABS Lymphocytes 1.2 10^3/uL (1.0-4.8); ABS Monocytes 0.9 10^3/uL (0.0-1.1); ABS Neutrophils 5.3 10^3/uL (1.5-7.6); ABS Nucleated RBC 0.01 10^3/ul; Eosinophil % 5.7 %; Hemoglobin 10.7 g/dL (13.2-16.3); Lymphocyte % 14.9 %; Mean Corpuscular Hgb Conc 33.5 g/dL (31-36); Mean Corpuscular Volume 92.5 fL (80-97); Mean Platelet Volume 10.4 fL (7.5-11.2); Nucleated Red Blood Cells % 0.1 %/100WBC (0.0-0.8); Platelet Count 140 10^3/uL (150-450); Red Blood Count 3.46 10^6/uL (4.06-5.63); Red Cell Distribution Width 15.1 % (12-17); White Blood Count 7.9 10^3/uL (3.6-10.2)
[2023-08-05 09:23] LABS: Albumin 2.7 g/dL (3.2-5.2); Albumin/Globulin Ratio 0.9 (1-3); Calcium 7.8 mg/dL (8.6-10.3); Creatinine, Serum 2.61 mg/dL (0.67-1.17); Globulin 2.9 g/dL (2-4); Potassium 4.6 mmol/L (3.5-5.0); Total Bilirubin 1.5 mg/dL (0.2-1.0); Total Protein 5.6 g/dL (6.4-8.9); eGFR CKD-EPI 25.6 (>60)
[2023-08-05 10:46] VITALS: BP 129/68
== END 2023-08-05 16:00 | disposition home health service (06) | DRG 383 ==
LOC: ED 11:44 → AA 16:29 → SSU 20:05
PROVIDERS: ADMIT Hospitalist; ATTEND Internal Medicine
PROC: O.GEI&D (2023-08-01 16:15)

== ENCOUNTER 2023-11-16 11:06 | Inpatient (IN) ==
[2023-11-16 12:23] LABS: ABS Basophils 0.1 10^3/uL (0.0-0.1); ABS Eosinophils 0.1 10^3/uL (0.0-0.5); ABS Lymphocytes 1.8 10^3/uL (1.0-4.8); ABS Monocytes 1.4 10^3/uL (0.0-1.1); ABS Neutrophils 11.2 10^3/uL (1.5-7.6); ABS Nucleated RBC 0.01 10^3/ul; Hematocrit 34.3 % (38-53); Hemoglobin 10.9 g/dL (13.2-16.3); Lymphocyte % 12.1 %; Mean Corpuscular Hemoglobin 27.6 pg (27-33); Mean Corpuscular Hgb Conc 31.9 g/dL (31-36); Mean Corpuscular Volume 86.6 fL (80-97); Mean Platelet Volume 10.3 fL (7.5-11.2); Nucleated Red Blood Cells % 0.1 %/100WBC (0.0-0.8); Platelet Count 138 10^3/uL (150-450); Red Blood Count 3.96 10^6/uL (4.06-5.63); Red Cell Distribution Width 14.8 % (12-17); White Blood Count 14.6 10^3/uL (3.6-10.2)
[2023-11-16 12:34] LABS: INR 1.51 (0.85-1.14)
[2023-11-16 12:35] LABS: Urine Appearance Extra Turbid; Urine Bacteria Absent /HPF (Absent); Urine Bilirubin Negative (Negative); Urine Blood 3+ (Negative); Urine Glucose Negative (Negative); Urine Ketones Negative (Negative); Urine Nitrite Negative (Negative); Urine Protein 2+ (>=100 mg/dL) (Negative); Urine Red Blood Cell 3+(>10/hpf) /HPF (0-Trace); Urine Specific Gravity 1.014 (1.002-1.030); Urine Urobilinogen Negative (Negative); Urine White Blood Cell 3+(>20/hpf) /HPF (0-Trace); Urine pH 5.5 (5.0-8.0)
[2023-11-16 12:38] LABS: Urine Color Dark-Red
[2023-11-16 13:12] LABS: C Reactive Protein 162.79 mg/L (<8.01); Calcium 8.3 mg/dL (8.6-10.3); Creatinine, Serum 2.98 mg/dL (0.67-1.17); Potassium 4.6 mmol/L (3.5-5.0); eGFR CKD-EPI 21.8 (>60)
[2023-11-16] MEDS: cefTRIAXone 1 gm/50 mL D5W 1 GM/50 ML BAG IV ONE (18:11)
[2023-11-16] MEDS: cefTRIAXone 2 gm/50 mL D5W 2 GM/50 ML BAG IV ONE (18:18)
[2023-11-16] MEDS ORDERED: Dextrose 50% Syringe 50 ml 25 GM/50 ML SYRINGE IV PUSH PRN (21:49)
[2023-11-17 05:00] LABS: ABS Basophils 0.1 10^3/uL (0.0-0.1); ABS Eosinophils 0.3 10^3/uL (0.0-0.5); ABS Lymphocytes 1.2 10^3/uL (1.0-4.8); ABS Monocytes 1.1 10^3/uL (0.0-1.1); ABS Neutrophils 7.8 10^3/uL (1.5-7.6); Eosinophil % 2.4 %; Hematocrit 31.4 % (38-53); Hemoglobin 10.5 g/dL (13.2-16.3); Lymphocyte % 11.2 %; Mean Corpuscular Hemoglobin 29.2 pg (27-33); Mean Corpuscular Hgb Conc 33.5 g/dL (31-36); Mean Platelet Volume 10.4 fL (7.5-11.2); Platelet Count 128 10^3/uL (150-450); Red Cell Distribution Width 14.8 % (12-17); White Blood Count 10.4 10^3/uL (3.6-10.2)
[2023-11-17 05:44] LABS: Albumin 3.1 g/dL (3.2-5.2); Albumin/Globulin Ratio 1.1 (1-3); Creatinine, Serum 2.82 mg/dL (0.67-1.17); Globulin 2.8 g/dL (2-4); Potassium 4.3 mmol/L (3.5-5.0); Total Bilirubin 0.9 mg/dL (0.2-1.0); Total Protein 5.9 g/dL (6.4-8.9); eGFR CKD-EPI 23.3 (>60)
[2023-11-17] MEDS: Aspirin EC 81 mg TAB.EC (enteric coated) PO SCH (09:28)
[2023-11-17] MEDS: MAGNESIUM GLYCINATE 100 MG PO SCH (09:29)
[2023-11-17] MEDS: MAGNESIUM PO SCH (09:29)
[2023-11-17] MEDS: cefTRIAXone 1 gm/50 mL D5W 1 GM/50 ML BAG IV SCH (18:46)
[2023-11-18 06:34] LABS: ABS Eosinophils 0.2 10^3/uL (0.0-0.5); ABS Lymphocytes 1.1 10^3/uL (1.0-4.8); ABS Neutrophils 4.3 10^3/uL (1.5-7.6); Eosinophil % 3.7 %; Hematocrit 31.7 % (38-53); Hemoglobin 10.6 g/dL (13.2-16.3); Lymphocyte % 16.9 %; Mean Corpuscular Hgb Conc 33.6 g/dL (31-36); Mean Corpuscular Volume 86.3 fL (80-97); Mean Platelet Volume 10.8 fL (7.5-11.2); Platelet Count 151 10^3/uL (150-450); Red Blood Count 3.67 10^6/uL (4.06-5.63); Red Cell Distribution Width 14.6 % (12-17); White Blood Count 6.6 10^3/uL (3.6-10.2)
[2023-11-18 06:47] LABS: Calcium 7.9 mg/dL (8.6-10.3); Creatinine, Serum 2.64 mg/dL (0.67-1.17); eGFR CKD-EPI 25.3 (>60)
[2023-11-18] MEDS ORDERED: Lactated Ringers 1000 ml BAG 1,000 ML IV ONE (08:37)
[2023-11-18 13:55] VITALS: BP 141/68
== END 2023-11-18 16:25 | disposition home or self-care (01) | DRG 463 ==
LOC: ED 11:06 → EDHOLD 11:06 → MED 11-17 22:33
PROVIDERS: ADMIT Internal Medicine; ATTEND Hospitalist